=== PATIENT | female | born 1995 | race Caucasian/White ===

== ENCOUNTER 2017-06-04 07:57 | Outpatient (CLI) | payer SELFPAY ==
[~2017-06-04] VITALS: Ht 152.4 cm; Wt 56.4 kg
[2017-06-04 09:24] LABS: HEMATOCRIT 31.3 % (34.6-47.8); HEMOGLOBIN 10.2 g/dL (11.7-16.4)
[2017-06-04 10:01] LABS: HIV 1&2 ANTIBODY SCREEN Nonreactive (Nonreactive); HIV-1 p24 ANTIGEN Nonreactive (Nonreactive)
[2017-06-04 16:30] LABS: DAU SCREEN DISCLAIMER
== END 2017-06-04 11:23 | disposition home or self-care (01) ==
LOC: LDOP 07:57
PROVIDERS: ATTEND Obstetrics & Gynecology
DX: O26.892 Other specified pregnancy related conditions, second trimester (principal); R10.9 Unspecified abdominal pain; Z3A.22 22 weeks gestation of pregnancy
CPT/HCPCS: 36415; 59025; 76805; 80307; 81003; 85027; 86592; 86703; 86762; 86850; 86900; 87340; 87899; 99201; 99211; G0435; G0463; G0479

== ENCOUNTER 2020-03-01 03:09 | Inpatient (IN) | payer OTHER ==
[~2020-03-01] VITALS: Ht 152.4 cm; Wt 59.0 kg
[2020-03-01] MEDS ORDERED: OXYTOCIN 30U/ 0.9% NaCL 500ML 500 ML IV ONE (03:11)
[2020-03-01] MEDS ORDERED: OXYTOCIN 30U/ 0.9% NaCL 500ML 500 ML ONE ×2 (03:14→12:16)
[2020-03-01] MEDS ORDERED: MISOPROSTOL 200 MCG TABLET ONE (03:15)
[2020-03-01] MEDS ORDERED: D5%-LACTATED RINGERS 1,000 ML IV SCH (03:18)
[2020-03-01] MEDS: LACTATED RINGERS 1,000 ML IV SCH ×2 (03:20→04:26)
[2020-03-01] MEDS ORDERED: FENTANYL/BUPIV./NS/PF 250 ML EPIDCONT SCH ×2 (03:23→05:13)
[2020-03-01] MEDS ORDERED: FENTANYL PF 100 MCG/2ML ONE (03:27)
[2020-03-01 03:30] VITALS: BP 141/74
[2020-03-01] MEDS ORDERED: ONDANSETRON 2MG/ML, 2ML IVPush PRN (03:30)
[2020-03-01] MEDS ORDERED: FENTANYL PF 100 MCG/2ML IV PRN (03:30)
[2020-03-01] MEDS ORDERED: TERBUTALINE 1 MG/ML, 1ML IVPush PRN (03:30)
[2020-03-01] MEDS ORDERED: TERBUTALINE 1 MG/ML, 1ML SQ PRN (03:30)
[2020-03-01] MEDS ORDERED: FENTANYL PF 100 MCG/2ML IVPush PRN (03:30)
[2020-03-01] MEDS ORDERED: PENICILLIN GK 5,000,000 UNITS in DEXTROSE 5% 100 ML IVPB ONE (03:30)
[2020-03-01 04:10] LABS: BARBITURATE SCREEN, URINE Negative (Negative); BENZODIAZEPINE SCREEN, URINE Negative (Negative); CANNABINOID SCREEN, URINE Negative (Negative); COCAINE SCREEN, URINE Negative (Negative); METHADONE SCREEN, URINE Negative (Negative); OPIATE SCREEN, URINE Negative (Negative)
[2020-03-01 04:18] LABS: AMPHETAMINE SCREEN, URINE Negative (Negative)
[2020-03-01 04:24] LABS: MEAN CORPUSCULAR HEMOGLOBIN 23.1 pg (27.0-34.8); MEAN CORPUSCULAR HGB CONC 31.6 g/dL (32.4-35.8); MEAN CORPUSCULAR VOLUME 73.2 fL (80-100); MEAN PLATELET VOLUME 11.1 fL (7.4-10.4); PLATELET COUNT 216 x10^3/uL (130-400); RED BLOOD COUNT 4.26 x10^6/uL (3.82-5.3); RED CELL DISTRIBUTION WIDTH 19.1 % (9.6-15.2)
[2020-03-01] MEDS ORDERED: FENTANYL/BUPIV./NS/PF 250 ML EPIDCONT ONE ×2 (04:30→04:40)
[2020-03-01] MEDS ORDERED: LIDOCAINE/PF 1.5% EPI 1:200K, 10 ML ONE (04:38)
[2020-03-01] MEDS ORDERED: LIDOCAINE 1%, 20ML ONE (04:40)
[2020-03-01] MEDS ORDERED: LIDOCAINE/PF 1.5%-EPI 1:200K, 30ML ONE (04:40)
[2020-03-01 04:51] LABS: BASOPHILS # (AUTO) 0.03 x10^3/uL (0-0.1); BASOPHILS % (AUTO) 0 % (0-1); EOSINOPHILS # (AUTO) 0.11 x10^3/uL (0-0.4); EOSINOPHILS % (AUTO) 1 % (1-7); LYMPHOCYTES # (AUTO) 2.26 x10^3/uL (1-3.4); LYMPHOCYTES % (AUTO) 24 % (22-44); MD SCAN; MONOCYTES # (AUTO) 0.55 x10^3/uL (0.2-0.8); MONOCYTES % (AUTO) 6 % (2-9); NEUTROPHILS # (AUTO) 6.49 x10^3/uL (1.8-6.8); NEUTROPHILS % (AUTO) 69 % (42-75)
[2020-03-01] MEDS ORDERED: LACTATED RINGERS 1,000 ML IV SCH (05:13)
[2020-03-01] MEDS ORDERED: GLYCOPYRROLATE 0.2MG/1ML, 5ML ONE (05:18)
[2020-03-01] MEDS ORDERED: EPHEDRINE 50 MG/ML, 1ML IVPush PRN (05:30)
[2020-03-01] MEDS ORDERED: LACTATED RINGERS 1,000 ML IVBOLUS PRN (05:30)
[2020-03-01] MEDS ORDERED: NALOXONE 0.4 MG/ML, 1ML IVPush PRN (05:30)
[2020-03-01 07:28] VITALS: BP 95/51
[2020-03-01] MEDS ORDERED: PENICILLIN GK 2,500,000 UNITS in DEXTROSE 5% 100 ML IVPB SCH (07:30)
[2020-03-01] MEDS ORDERED: GLYCOPYRROLATE 0.2MG/1ML, 5ML IVPush ONE ×2 (08:30)
[2020-03-01] MEDS ORDERED: GLYCOPYRROLATE 0.4 MG/2 ML, 2ML IVPush ONE (09:00)
[2020-03-01] MEDS ORDERED: OXYcodone/APAP 5/325MG TABLET ONE (10:11)
[2020-03-01] MEDS ORDERED: IBUPROFEN 800 MG TABLET PO PRN (10:30)
[2020-03-01] MEDS ORDERED: ACETAMINOPHEN 325 MG TABLET PO PRN (10:30)
[2020-03-01] MEDS ORDERED: SIMETHICONE 80 MG CHEW TAB PO PRN (10:30)
[2020-03-01] MEDS ORDERED: METHYLERGONOVINE 0.2 MG/ML IM PRN (10:30)
[2020-03-01] MEDS ORDERED: MISOPROSTOL 200 MCG TABLET PR PRN (10:30)
[2020-03-01] MEDS ORDERED: CARBOPROST TROMETHAMINE 250 MCG/ML, 1ML IM PRN (10:30)
[2020-03-01] MEDS ORDERED: BISACODYL 10 MG SUPP PR PRN (10:30)
[2020-03-01] MEDS ORDERED: GLYCERIN ADULT SUPP PR PRN (10:30)
[2020-03-01] MEDS ORDERED: METOCLOPRAMIDE 5 MG/ML, 2ML IV PRN (10:30)
[2020-03-01] MEDS ORDERED: ONDANSETRON 2MG/ML, 2ML IV PRN (10:30)
[2020-03-01] MEDS ORDERED: OXYcodone/APAP 5/325MG TABLET PO PRN ×2 (10:30)
[2020-03-01 11:18] LABS: FREE T4 (FREE THYROXINE) 1.18 ng/dL (0.76-1.46)
[2020-03-01] MEDS: OXYTOCIN 30U/ 0.9% NaCL 500ML 500 ML IV SCH ×2 (12:19→20:04)
[2020-03-01 12:58] LABS: ANION GAP 9 mmol/L (5-15); CALCIUM 7.7 mg/dL (8.5-10.1); CHLORIDE 110 mmol/L (98-107); CREATININE 0.68 mg/dL (0.55-1.02)
[2020-03-01 13:06] VITALS: BP 107/71
[2020-03-01] MEDS: IBUPROFEN 600 MG TABLET PO PRN ×2 (13:24→22:19)
[2020-03-01 17:00] VITALS: BP 102/62
[2020-03-01 18:20] LABS: MEAN CORPUSCULAR HEMOGLOBIN 22.8 pg (27.0-34.8); MEAN CORPUSCULAR HGB CONC 31.3 g/dL (32.4-35.8); PLATELET COUNT 210 x10^3/uL (130-400)
[2020-03-01 18:43] LABS: ANISOCYTOSIS 1+; BASOPHILS % (AUTO) 0 % (0-1); EOSINOPHILS # (AUTO) 0.02 x10^3/uL (0-0.4); EOSINOPHILS % (AUTO) 0 % (1-7); HYPOCHROMIA 1+; LYMPHOCYTES # (AUTO) 1.33 x10^3/uL (1-3.4); LYMPHOCYTES % (AUTO) 8 % (22-44); MD MORPH REVIEW ONLY; MICROCYTOSIS 1+; MONOCYTES # (AUTO) 0.68 x10^3/uL (0.2-0.8); MONOCYTES % (AUTO) 4 % (2-9); NEUTROPHILS # (AUTO) 14.96 x10^3/uL (1.8-6.8); NEUTROPHILS % (AUTO) 88 % (42-75)
[2020-03-01 18:44] LABS: OVALOCYTES 1+
[2020-03-01 18:45] LABS: <PLATELET ESTIMATE> ADEQUATE; LARGE PLATELETS 1+
[2020-03-01 20:16] VITALS: BP 104/68
[2020-03-01] MEDS: DOCUSATE 100 MG CAPSULE PO PRN (22:19)
[2020-03-02 01:00] VITALS: BP 95/61
[2020-03-02 04:30] VITALS: BP 93/54
[2020-03-02] MEDS: OXYTOCIN 30U/ 0.9% NaCL 500ML 500 ML IV SCH ×2 (06:04→16:43)
[2020-03-02 07:05] VITALS: BP 93/60
[2020-03-02] MEDS: DOCUSATE 100 MG CAPSULE PO PRN ×2 (09:16→20:07)
[2020-03-02] MEDS: IBUPROFEN 600 MG TABLET PO PRN ×2 (09:16→15:34)
[2020-03-02] MEDS: FERROUS SULFATE 325 MG TABLET PO SCH (09:16)
[2020-03-02] MEDS: PRENATAL VIT/IRON/FA 1 EACH TABLET PO SCH (09:16)
[2020-03-02 12:03] VITALS: BP 109/48
[2020-03-02 19:40] VITALS: BP 95/56
[2020-03-02] MEDS ORDERED: DIPH,PERTUSS(ACELL),TET VAC/PF NC IM-VACC ONE (20:00)
[2020-03-03] MEDS: OXYTOCIN 30U/ 0.9% NaCL 500ML 500 ML IV SCH ×2 (02:04→12:04)
[2020-03-03 08:06] VITALS: BP 103/69
[2020-03-03] MEDS: FERROUS SULFATE 325 MG TABLET PO SCH (08:12)
[2020-03-03] MEDS: DOCUSATE 100 MG CAPSULE PO PRN (08:12)
[2020-03-03] MEDS: IBUPROFEN 600 MG TABLET PO PRN ×2 (08:12→15:49)
[2020-03-03] MEDS: PRENATAL VIT/IRON/FA 1 EACH TABLET PO SCH (08:12)
[2020-03-03] MEDS ORDERED: PREN1TAB98 PO (11:49)
[2020-03-03] MEDS ORDERED: IBUP-1222 PO (11:50)
[2020-03-03] MEDS ORDERED: FERR324T5 PO (11:51)
== END 2020-03-03 19:19 | disposition home or self-care (01) | DRG 806 ==
LOC: LDOP 03:09 → LDIP 03:19 → 2NW 12:44
PROVIDERS: ADMIT Student in an Organized Health Care Education/Training Program; ATTEND Student in an Organized Health Care Education/Training Program
PROC: 10E0XZZ Delivery of Products of Conception, External Approach (ICD-10-PCS; principal; 2020-03-01)
PROC: 3E0R3BZ Introduction of Anesthetic Agent into Spinal Canal, Percutaneous Approach (ICD-10-PCS; 2020-03-01)
PROC: 3E0R33Z Introduction of Anti-inflammatory into Spinal Canal, Percutaneous Approach (ICD-10-PCS; 2020-03-01)
DX: O41.03X0 Oligohydramnios, third trimester, not applicable or unspecified (principal); D62 Acute posthemorrhagic anemia; Z37.0 Single live birth; O99.284 Endocrine, nutritional and metabolic diseases complicating childbirth; O99.89 Other specified diseases and conditions complicating pregnancy, childbirth and the puerperium; R00.1 Bradycardia, unspecified; E03.9 Hypothyroidism, unspecified; D50.9 Iron deficiency anemia, unspecified; O99.02 Anemia complicating childbirth; Z87.891 Personal history of nicotine dependence; Z3A.37 37 weeks gestation of pregnancy; Z3A.40 40 weeks gestation of pregnancy
CPT/HCPCS: 36415; 87806; J3490; 76815; 80048; 80307; 82803; 84439; 84443; 85025; 86592; 86762; 86803; 86850; 86900; 87340; 90715; 93005; 93306; G0378; J2540; J3010; G0475; J2590; J7120